=== PATIENT | male | born 2000 | race Two or more races ===

== ENCOUNTER 2023-06-14 03:33 | Emergency (ER) | payer OTHER ==
[~2023-06-14] VITALS: Ht 177.8 cm; Wt 82.3 kg
[2023-06-14] MEDS: ONDANSETRON ODT 4 MG TAB PO ONE (04:57)
[2023-06-14] MEDS: SODIUM CHLORIDE 0.9% 1,000 ML IV ONE ×2 (05:36→05:37)
[2023-06-14] MEDS: ONDANSETRON HCL 4 MG/2 ML VIAL IV ONE (05:44)
[2023-06-14 06:20] LABS: Basophils # (auto) 0.1 10 ^3/uL (0-0.2); Basophils % (auto) 0.2 % (0.0-2.0); Eosinophils # (auto) 0 10 ^3/uL (0-0.8); Eosinophils % (auto) 0.1 % (0.0-7.0); Hematocrit 44.9 % (41.0-53.0); Hemoglobin 15.1 g/dL (13.5-17.5); Lymphocytes # (auto) 1.2 10 ^3/uL (0.4-5.4); Lymphocytes % (auto) 4.8 % (10.0-50.0); Mean Corpuscular Hemoglobin 29.4 pg (28.0-32.0); Mean Corpuscular Hgb Conc. 33.7 g/dL (32.0-36.0); Mean Corpuscular Volume 87.2 fL (80.0-100.0); Monocytes # (auto) 1.7 10 ^3/uL (0-1.3); Neutrophils # (auto) 21.8 10 ^3/uL (1.6-8.6); Neutrophils % (auto) 87.9 % (37.0-80.0); Red Blood Cells 5.15 10^6/uL (4.5-5.90); Red Cell Distribution Width 12.8 % (11.8-14.3); White Blood Cell 24.8 10^3/uL (4.4-10.8)
[2023-06-14 06:45] LABS: Alanine Aminotransferase 17 U/L (7-40); Albumin 5.2 g/dL (3.2-4.8); Alkaline Phosphatase 82 U/L (46-116); Anion Gap 15 (5-15); Aspartate Aminotransferase 16 U/L (13-40); Bilirubin, Total 1.3 mg/dL (0.2-1.0); Blood Urea Nitrogen 15 mg/dL (9-23); Calcium 10.6 mg/dL (8.7-10.4); Carbon Dioxide 18 mmol/L (20-30); Chloride 107 mmol/L (98-107); Glucose 201 mg/dL (74-106); Lipase 32 U/L (12-53); Potassium 3.6 mmol/L (3.5-5.1); Sodium 140 mmol/L (136-145); Total Protein 7.8 g/dL (5.7-8.2)
[2023-06-14 07:00] VITALS: BP 120/52; PULSE 61; RESP 20; TEMP 98.6; O2SAT 98
[2023-06-14] MEDS ORDERED: cefTRIAXone 1GM/50ML D5W 50 ML IV ONE (07:15)
[2023-06-14] MEDS ORDERED: metroNIDAZOLE 500MG/100ML 100 ML IV ONE (07:15)
[2023-06-14] MEDS: HYDROcodone-ACET 5/325MG TAB PO ONE (07:52)
== END 2023-06-14 07:37 | disposition left against medical advice (07) ==
LOC: ER 03:33
DX: K52.9 Noninfective gastroenteritis and colitis, unspecified (principal); F15.90 Other stimulant use, unspecified, uncomplicated
CPT/HCPCS: 36415; 80053; 83690; 85025; 96360; 99283; J7030; Q0162